=== PATIENT | female | born 1995 | race Two or more races ===

== ENCOUNTER 2021-05-16 01:25 | Emergency (ER) | payer MEDICAID, OTHER ==
[~2021-05-16] VITALS: Ht 175.3 cm; Wt 95.0 kg
[2021-05-16 01:32] VITALS: BP 117/62
== END 2021-05-16 02:58 | disposition left against medical advice (07) ==
LOC: ER 01:25
DX: Z53.21 Procedure and treatment not carried out due to patient leaving prior to being seen by health care provider (principal)